=== PATIENT | female | born 1955 | race African-American/Black ===

== ENCOUNTER 2017-08-08 10:19 | Inpatient (IN) | payer OTHER ==
[2017-08-08 11:12] VITALS: BMI 35.5
--- NOTE | 2017-08-08 12:50 | HP ---
CIWA Score - CIWA Score Nausea/Vomitin-No Nausea/No Vomiting Muscle Tremors: 4-Moderate,w/Arms Extend Anxiety: 4-Mod. Anxious/Guarded Agitation: 4-Moderately Restless Paroxysmal Sweats: 1-Minimal Palms Moist Orientation: 0-Oriented Tacttile Disturbances: 2-Mild Itch/Numbness/Burn Auditory Disturbances: 0-None Visual Disturbances: 0-None Headache: 1-Very Mild CIWA-Ar Total Score: 16 Admission ROS S - HPI Chief Complaint: alcohol withdrawal sx Allergies/Adverse Reactions: Allergies Allergy/AdvReac Type Severity Reaction Status Date / Time No Known Allergies Allergy Verified 08/08/17 12:26 History of Present Illness: 62 years old female with long history of alcohol nicotine dependence has diabetes ii hypertension and depression is admitted to detox Exam Limitations: No Limitations - Ebola screening Have you traveled outside of the country in the last 21 days: No Have you had contact with anyone from an Ebola affected area: No Have you been sick,other than usual withdrawal symptoms: No Do you have a fever: No - Review of Systems Constitutional: Changes in sleep, Weight Stable EENT: reports: Blurred Vision (eye glassess at home) Respiratory: reports: SOB with Exertion Cardiac: reports: No Symptoms Reported GI: reports: Poor Fluid Intake, Abdominal cramping : reports: No Symptoms Reported Musculoskeletal: reports: Back Pain, Neck Pain Integumentary: reports: No Symptoms Reported Neuro: reports: Tremors Endocrine: reports: Increased Urine Hematology: reports: No Symptoms Reported Psychiatric: reports: Judgement Intact, Orientated x3, Depressed Other Systems: Reviewed and Negative Patient History - Patient Medical History Hx Anemia: No Hx Asthma: Yes Hx Chronic Obstructive Pulmonary Disease (COPD): No Hx Cancer: No Hx Cardiac Disorders: No Hx Congestive Heart Failure: No Hx Hypertension: Yes Hx Hypercholesterolemia: No Hx Pacemaker: No HX Cerebrovascular Accident: No Hx Seizures: No Hx Dementia: No Hx Diabetes: Yes Hx Gastrointestinal Disorders: No Hx Liver Disease: No Hx Genitourinary Disorders: No Hx Sexually Transmitted Disorders: No Hx Renal Disease (ESRD): No Hx Thyroid Disease: No Hx Human Immunodeficiency Virus (HIV): No Hx Hepatitis C: No Hx Depression: Yes Hx Suicide Attempt: No Hx Bipolar Disorder: No Hx Schizophrenia: No - Patient Surgical History Past Surgical History: No Hx Neurologic Surgery: No Hx Cataract Extraction: No Hx Cardiac Surgery: No Hx Lung Surgery: No Hx Breast Surgery: No Hx Breast Biopsy: No Hx Abdominal Surgery: No Hx Appendectomy: No Hx Cholecystectomy: No Hx Genitourinary Surgery: No Hx Orthopedic Surgery: No Other Surgical History: right and left shoulder blades serosanquino cyst biopse negative 01/2017 Anesthesia Reaction: No - PPD History Previous Implant?: Yes Documented Results: Negative w/o proof Implanted On Prior [facility] Admission?: No PPD to be Administered?: Yes - Reproductive History Patient is a Female of Child Bearing Age (11 -55 yrs old): No Last Menstrual Period: 08/08/10 Patient : No - Smoking Cessation Smoking history: Current every day smoker Have you smoked in the past 12 months: Yes Aproximately how many cigarettes per day: 10 Cigars Per Day: 0 Hx Chewing Tobacco Use: No Initiated information on smoking cessation: Yes 'Breaking Loose' booklet given: 08/08/17 - Substance & Tx. History Hx Alcohol Use: Yes Hx Substance Use: No Substance Use Type: Alcohol Hx Substance Use Treatment: No (first detox) - Substances Abused Alcohol-tequila Route: Oral Frequency: Daily Amount used: 1 pt. Age of first use: 59 Date of Last Use: 08/07/17 Family Disease History - Family Disease History Family Disease History: [place]: Daughter (surgical treatment 2016), Other: Father ( ), Daughter Admission Physical Exam S - Vital Signs Vital Signs: Vital Signs - 24 hr 08/08/17 11:10 Temperature 97.6 F Pulse Rate 66 Respiratory 20 Rate Blood Pressure 189/92 - Physical General Appearance: Yes: Appropriately Dressed, Mild Distress, Obese, Tremorous , Irritable, Sweating, Anxious HEENTM: Yes: Hearing grossly Normal, Normocephalic, Normal Voice Respiratory: Yes: Chest Non-Tender, Lungs Clear, No Respiratory Distress, No Accessory Muscle Use Neck: Yes: Supple, Trachea in good position Breast: Yes: Breasts Symetrical, No Discharge Cardiology: Yes: Regular Rhythm, Regular Rate, S1, S2 Abdominal: Yes: Normal Bowel Sounds, Non Tender, Flat Genitourinary: Yes: Within Normal Limits Back: Yes: Normal Inspection Musculoskeletal: Yes: full range of Motion, Gait Steady Extremities: Yes: Normal Inspection, Normal Range of Motion, Non-Tender, Tremors Neurological: Yes: Fully Oriented, Alert, Motor Strength 5/5, Normal Response, Depressed Affect Integumentary: Yes: Dry, Warm Lymphatic: Yes: Within Normal Limits - Diagnostic (1) Alcohol dependence with uncomplicated withdrawal Current Visit: Yes Status: Acute (2) Diabetes mellitus type II, controlled Current Visit: Yes Status: Chronic Qualifiers: Diabetes mellitus long term care administrator insulin use: without long term care administrator use Diabetes mellitus complication status: without complication Qualified Code(s): E11.9 - Type 2 diabetes mellitus without complications (3) Hypertension Current Visit: Yes Status: Chronic Qualifiers: Hypertension type: essential hypertension Qualified Code(s): I10 - Essential (primary) hypertension (4) Dry skin dermatitis Current Visit: Yes Status: Chronic (5) Substance induced mood disorder Current Visit: Yes Status: Suspected Cleared for Admission S - Detox or Rehab [facility] Level of Care: Medically Managed Detox Regimen/Protocol: Librium [facility] Breath Alcohol Content Breath Alcohol Content: 0 Urine Pregancy Test - Result Urine Test Results: Negative- NO Line Present Urine Drug Screen - Results Drug Screen Negative: Yes
[2017-08-08] MEDS ORDERED: ACETAMINOPHEN 325 MG TABLET (FP) PO PRN (12:59)
[2017-08-08] MEDS ORDERED: chlordiazePOXIDE HCL 25 MG CAPSULE PO PRN (12:59)
[2017-08-08] MEDS ORDERED: LOPERAMIDE HCL 2 MG CAPSULE PO PRN (12:59)
[2017-08-08] MEDS ORDERED: IBUPROFEN 400 MG TABLET (FP) PO PRN (12:59)
[2017-08-08] MEDS ORDERED: guaiFENesin/D-METHORPHAN HB 10 ML UNIT-DOSE CUPS PO PRN (12:59)
[2017-08-08] MEDS ORDERED: MAG HYDROX/AL HYDROX/SIMETH 30 ML UNIT-DOSE CUP PO PRN (12:59)
[2017-08-08] MEDS ORDERED: NICOTINE POLACRILEX 2 MG GUM BC PRN (12:59)
[2017-08-08] MEDS ORDERED: P-EPHED 60MG/TRIPROLIDI 2.5MG TABLET PO PRN (12:59)
[2017-08-08] MEDS ORDERED: MAGNESIUM HYDROX 2400MG/30ML ORAL SUSPENSION 30 ML CUP PO PRN (12:59)
[2017-08-08] MEDS ORDERED: MAGNESIUM CITRATE 300 ML BOTTLE PO PRN (12:59)
[2017-08-08] MEDS ORDERED: MENTHOL/PHENOL 1 EACH UD MM PRN (12:59)
[2017-08-08] MEDS ORDERED: METFORMIN HCL 750 MG PO SCH (13:15)
[2017-08-08] MEDS: amLODIPine BESYLATE 10 MG TABLET (FP) PO SCH (17:11)
[2017-08-08] MEDS: chlordiazePOXIDE HCL 25 MG CAPSULE PO SCH ×2 (17:11→22:26)
[2017-08-08] MEDS: NICOTINE 14 MG/24 HOURS TOPICAL PATCH TD SCH (17:15)
[2017-08-08] MEDS: METFORMIN HCL 750 MG PO SCH (17:37)
[2017-08-08] MEDS ORDERED: MELATONIN 5 MG TABLETS PO PRN (22:00)
[2017-08-08] MEDS: THIAMINE HCL 100 MG TABLET (FP) PO SCH (22:26)
[2017-08-08] MEDS ORDERED: cloNIDine HCL 0.1 MG TABLET PO ONE (23:02)
[2017-08-08] MEDS: MINERAL OIL/PETROLAT/WATER TOPICAL CREAM 113 GM JAR TP SCH (23:04)
--- NOTE | 2017-08-08 23:16 | PN ---
BHS Progress Note Note: Patient with asymptomatic elevated BP 156/108. withdrawal sx one time dose clonidine 0.1mg increase fluids continue to monitor
[2017-08-09 01:30] LABS: URINE APPEARANCE CLEAR; URINE BILIRUBIN NEGATIVE (<2.0 mg/dL); URINE COLOR LTYELLOW; URINE GLUCOSE (UA) NEGATIVE (NEGATIVE); URINE KETONE NEGATIVE (NEGATIVE); URINE LEUK ESTERASE NEGATIVE (NEGATIVE); URINE NITRITE NEGATIVE (NEGATIVE); URINE PROTEIN NEGATIVE (NEGATIVE); URINE UROBILINOGEN NEGATIVE mg/dL (0.2-1.0)
[2017-08-09] MEDS: chlordiazePOXIDE HCL 25 MG CAPSULE PO SCH ×4 (06:30→22:46)
[2017-08-09 10:04] LABS: HEMATOCRIT 42.1 % (32.4-45.2); HEMOGLOBIN 13.4 GM/dL (10.7-15.3); MCH 26.2 pg (25.7-33.7); MCHC 31.8 g/dl (32.0-36.0); MEAN CELL VOLUME 82.2 fl (80-96); MEAN PLT VOLUME 11.6 fl (7.5-11.1); PLATELET COUNT 120 K/MM3 (134-434); RBC 5.12 M/mm3 (3.60-5.2); RDW 16.3 % (11.6-15.6); WHITE BLOOD COUNT 3.5 K/mm3 (4.0-10.0)
[2017-08-09 10:24] LABS: CHLORIDE 109 mmol/L (98-107); POTASSIUM 4.1 mmol/L (3.5-5.1); SODIUM 142 mmol/L (136-145)
--- NOTE | 2017-08-09 10:45 | PN ---
S CIWA - CIWA Score Nausea/Vomitin-Mild Nausea/No Vomiting Muscle Tremors: 4-Moderate,w/Arms Extend Anxiety: 4-Mod. Anxious/Guarded Agitation: 4-Moderately Restless Paroxysmal Sweats: 1-Minimal Palms Moist Orientation: 0-Oriented Tacttile Disturbances: 1-Very Mild Itch/Numbness Auditory Disturbances: 0-None Visual Disturbances: 0-None Headache: 0-None Present CIWA-Ar Total Score: 15 BHS Progress Note (SOAP) Subjective: sweat tremor anxiety restlessness trouble sleep at night Objective: 08/09/17 10:44 Vital Signs Temperature 97.5 F L 08/09/17 09:53 Pulse Rate 71 08/09/17 09:53 Respiratory Rate 20 08/09/17 09:53 Blood Pressure 151/100 08/09/17 09:53 O2 Sat by Pulse Oximetry (%) Laboratory Last Values WBC 3.5 K/mm3 (4.0-10.0) L 08/09/17 05:50 RBC 5.12 M/mm3 (3.60-5.2) 08/09/17 05:50 Hgb 13.4 GM/dL (10.7-15.3) 08/09/17 05:50 Hct 42.1 % (32.4-45.2) 08/09/17 05:50 MCV 82.2 fl (80-96) 08/09/17 05:50 MCH 26.2 pg (25.7-33.7) 08/09/17 05:50 MCHC 31.8 g/dl (32.0-36.0) L 08/09/17 05:50 RDW 16.3 % (11.6-15.6) H 08/09/17 05:50 Plt Count 120 K/MM3 (134-434) L 08/09/17 05:50 MPV 11.6 fl (7.5-11.1) H 08/09/17 05:50 Sodium 142 mmol/L (136-145) 08/09/17 05:50 Potassium 4.1 mmol/L (3.5-5.1) 08/09/17 05:50 Chloride 109 mmol/L (98-107) H 08/09/17 05:50 POC Glucometer 119 UNITS (80-120) 08/09/17 06:40 Urine Color Ltyellow 08/08/17 23:30 Urine Appearance Clear 08/08/17 23:30 Urine pH 8.0 (5.0-8.0) 08/08/17 23:30 Ur Specific [place] 1.014 (1.001-1.035) 08/08/17 23:30 Urine Protein Negative (NEGATIVE) 08/08/17 23:30 Urine Glucose (UA) Negative (NEGATIVE) 08/08/17 23:30 Urine Ketones Negative (NEGATIVE) 08/08/17 23:30 Urine Blood Negative (NEGATIVE) 08/08/17 23:30 Urine Nitrite Negative (NEGATIVE) 08/08/17 23:30 Urine Bilirubin Negative (<2.0 mg/dL) 08/08/17 23:30 Urine Urobilinogen Negative mg/dL (0.2-1.0) 08/08/17 23:30 Ur Leukocyte Esterase Negative (NEGATIVE) 08/08/17 23:30 lab noted Assessment: 08/09/17 10:45 withdrawal sx hypertension diabetes Plan: continue detox amlodopine lisinopril
[2017-08-09 10:54] LABS: ALBUMIN 3.8 g/dl (3.4-5.0); ALK PHOS 112 U/L (45-117); ANION GAP 8 (8-16); BILIRUBIN,TOTAL 0.5 mg/dL (0.2-1.0); BLOOD UREA NITROGEN 10 mg/dL (7-18); CALCIUM 8.6 mg/dL (8.5-10.1); CO2 25 mmol/L (21-32); CREATININE 0.8 mg/dL (0.55-1.02); GLUCOSE,RANDOM 99 mg/dL (74-106); SGOT/AST 38 U/L (15-37); SGPT/ALT 53 U/L (12-78); TOT PROT 7.8 g/dl (6.4-8.2)
[2017-08-09] MEDS: PRENATAL VITAMINS W/ FOLIC ACID TABLET (FP) PO SCH (11:05)
[2017-08-09] MEDS: amLODIPine BESYLATE 10 MG TABLET (FP) PO SCH (11:05)
[2017-08-09] MEDS: NICOTINE 14 MG/24 HOURS TOPICAL PATCH TD SCH (11:06)
[2017-08-09] MEDS: LISINOPRIL 10 MG TABLET (FP) PO SCH (11:08)
--- NOTE | 2017-08-09 11:30 | EKG ---
Test Reason : Blood Pressure : / mmHG Vent. Rate : 069 BPM Atrial Rate : 069 BPM P-R Int : 126 ms QRS Dur : 136 ms QT Int : 472 ms P-R-T Axes : 064 -63 009 degrees QTc Int : 505 ms NORMAL SINUS RHYTHM RIGHT BUNDLE BRANCH BLOCK LEFT ANTERIOR FASCICULAR BLOCK BIFASCICULAR BLOCK MINIMAL VOLTAGE CRITERIA FOR LVH, MAY BE NORMAL VARIANT ABNORMAL ECG NO PREVIOUS ECGS AVAILABLE Confirmed by ALIYAH MANUEL MD ([id number]) on 08/09/2017 11:30:06 AM Referred By: Confirmed By:ALIYAH MANUEL MD
[2017-08-09] MEDS: METFORMIN HCL 750 MG PO SCH (17:23)
--- NOTE | 2017-08-09 18:44 | CONSULT ---
[facility] Psychiatric Consult - Data Date of interview: 08/09/17 Admission source: [facility] Identifying data: First admission to [facility] for this 62 y/o AA female seeking detox treatment on for alcohol dependence.Patient is single,a mother of four,domiciled and sporadically employed. Substance Abuse History: Confirmed by patient in this interview.Smoking history : Current every day smoker. Have you smoked in the past 12 months: Yes. Aproximately how many cigarettes per day: 10. Cigars Per Day: 0. Hx Chewing Tobacco Use: No. Initiated information on smoking cessation: Yes. 'Breaking Loose' booklet given: 08/08/17. - Substance & Tx. History. Hx Alcohol Use: Yes. Hx Substance Use: No. Substance Use Type: Alcohol. Hx Substance Use Treatment: No (first detox). - Substances Abused. Alcohol-tequila. Route: Oral. Frequency: Daily. Amount used: 1 pt. Age of first use: 59. Date of Last Use: 08/07/17 Medical History: Bronchial asthma,obesity,diabetes mellitus and hypertension. Psychiatric History: Patient denies. Physical/Sexual Abuse/Trauma History: Patient denies. Additional Comment: Drug Screen is negative. Mental Status Exam - Mental Status Exam Alert and Oriented to: Time, Place, Person Cognitive Function: Good Patient Appearance: Well Groomed Mood: Hopeful, Euthymic Affect: Appropriate, Normal Range Patient Behavior: Appropriate, Cooperative Speech Pattern: Clear, Appropriate Voice Loudness: Normal Thought Process: Intact Thought Disorder: Not Present Hallucinations: Denies Suicidal Ideation: Denies Homicidal Ideation: Denies Insight/Judgement: Fair Sleep: Well Appetite: Good Muscle strength/Tone: Normal Gait/Station: Normal Psychiatric Findings - Problem List ([place] 1, 2,3) (1) Alcohol dependence with uncomplicated withdrawal Current Visit: Yes Status: Acute (2) Nicotine dependence Current Visit: Yes Status: Acute - Initial Treatment Plan Initial Treatment Plan: Psychoeducation.Detoxification.Observation.
[2017-08-09] MEDS: MINERAL OIL/PETROLAT/WATER TOPICAL CREAM 113 GM JAR TP SCH (22:45)
[2017-08-09] MEDS: THIAMINE HCL 100 MG TABLET (FP) PO SCH (22:46)
[2017-08-10] MEDS: chlordiazePOXIDE HCL 25 MG CAPSULE PO SCH ×2 (06:16→10:55)
--- NOTE | 2017-08-10 08:49 | EKG ---
Test Reason : Blood Pressure : / mmHG Vent. Rate : 067 BPM Atrial Rate : 067 BPM P-R Int : 122 ms QRS Dur : 138 ms QT Int : 458 ms P-R-T Axes : 049 -59 009 degrees QTc Int : 483 ms NORMAL SINUS RHYTHM RIGHT BUNDLE BRANCH BLOCK LEFT ANTERIOR FASCICULAR BLOCK BIFASCICULAR BLOCK MODERATE VOLTAGE CRITERIA FOR LVH, MAY BE NORMAL VARIANT ABNORMAL ECG WHEN COMPARED WITH ECG OF 08-AUG-2017 17:17, NO SIGNIFICANT CHANGE WAS FOUND Confirmed by NICHOLAS PRESCOTT, VINH ([id number]) on 08/10/2017 8:49:01 AM Referred By: Confirmed By:VINH PETERSON MD
[2017-08-10] MEDS: LISINOPRIL 10 MG TABLET (FP) PO SCH (10:52)
[2017-08-10] MEDS: amLODIPine BESYLATE 10 MG TABLET (FP) PO SCH (10:52)
[2017-08-10] MEDS: NICOTINE 14 MG/24 HOURS TOPICAL PATCH TD SCH (10:53)
[2017-08-10] MEDS: PRENATAL VITAMINS W/ FOLIC ACID TABLET (FP) PO SCH (12:49)
--- NOTE | 2017-08-10 14:36 | PN ---
S CIWA - CIWA Score Nausea/Vomitin Muscle Tremors: 3 Anxiety: 3 Agitation: 2 Paroxysmal Sweats: 1-Minimal Palms Moist Orientation: 0-Oriented Tacttile Disturbances: 1-Very Mild Itch/Numbness Auditory Disturbances: 1-Very Mild Visual Disturbances: 0-None Headache: 2-Mild CIWA-Ar Total Score: 16 BHS Progress Note (SOAP) Subjective: ALERT,IRRITABLE,TREMOR,INTERRUPTED SLEEP Objective: 08/10/17 14:34 Vital Signs Temperature 97.7 F 08/10/17 09:45 Pulse Rate 72 08/10/17 09:45 Respiratory Rate 18 08/10/17 09:45 Blood Pressure 124/76 08/10/17 09:45 O2 Sat by Pulse Oximetry (%) Laboratory Last Values WBC 3.5 K/mm3 (4.0-10.0) L 08/09/17 05:50 RBC 5.12 M/mm3 (3.60-5.2) 08/09/17 05:50 Hgb 13.4 GM/dL (10.7-15.3) 08/09/17 05:50 Hct 42.1 % (32.4-45.2) 08/09/17 05:50 MCV 82.2 fl (80-96) 08/09/17 05:50 MCH 26.2 pg (25.7-33.7) 08/09/17 05:50 MCHC 31.8 g/dl (32.0-36.0) L 08/09/17 05:50 RDW 16.3 % (11.6-15.6) H 08/09/17 05:50 Plt Count 120 K/MM3 (134-434) L 08/09/17 05:50 MPV 11.6 fl (7.5-11.1) H 08/09/17 05:50 Sodium 142 mmol/L (136-145) 08/09/17 05:50 Potassium 4.1 mmol/L (3.5-5.1) 08/09/17 05:50 Chloride 109 mmol/L (98-107) H 08/09/17 05:50 Carbon Dioxide 25 mmol/L (21-32) 08/09/17 05:50 Anion Gap 8 (8-16) 08/09/17 05:50 BUN 10 mg/dL (7-18) 08/09/17 05:50 Creatinine 0.8 mg/dL (0.55-1.02) 08/09/17 05:50 Creat Clearance w eGFR > 60 (>60) 08/09/17 05:50 POC Glucometer 122 UNITS (80-120) 08/10/17 06:11 Random Glucose 99 mg/dL (74-106) 08/09/17 05:50 Calcium 8.6 mg/dL (8.5-10.1) 08/09/17 05:50 Total Bilirubin 0.5 mg/dL (0.2-1.0) 08/09/17 05:50 AST 38 U/L (15-37) H 08/09/17 05:50 ALT 53 U/L (12-78) 08/09/17 05:50 Alkaline Phosphatase 112 U/L (45-117) 08/09/17 05:50 Total Protein 7.8 g/dl (6.4-8.2) 08/09/17 05:50 Albumin 3.8 g/dl (3.4-5.0) 08/09/17 05:50 Urine Color Ltyellow 08/08/17 23:30 Urine Appearance Clear 08/08/17 23:30 Urine pH 8.0 (5.0-8.0) 08/08/17 23:30 Ur Specific [place] 1.014 (1.001-1.035) 08/08/17 23:30 Urine Protein Negative (NEGATIVE) 08/08/17 23:30 Urine Glucose (UA) Negative (NEGATIVE) 08/08/17 23:30 Urine Ketones Negative (NEGATIVE) 08/08/17 23:30 Urine Blood Negative (NEGATIVE) 08/08/17 23:30 Urine Nitrite Negative (NEGATIVE) 08/08/17 23:30 Urine Bilirubin Negative (<2.0 mg/dL) 08/08/17 23:30 Urine Urobilinogen Negative mg/dL (0.2-1.0) 08/08/17 23:30 Ur Leukocyte Esterase Negative (NEGATIVE) 08/08/17 23:30 RPR Titer Nonreactive (NONREACTIVE) 08/09/17 05:50 Assessment: 08/10/17 14:35 WITHDRAWAL SYMPTOM Plan: CONTINUE DETOX
[2017-08-10] MEDS: METFORMIN HCL 750 MG PO SCH (17:12)
[2017-08-10] MEDS: chlordiazePOXIDE 5 MG CAPSULE PO SCH ×2 (17:12→22:05)
[2017-08-10] MEDS: THIAMINE HCL 100 MG TABLET (FP) PO SCH (22:05)
[2017-08-10] MEDS: MINERAL OIL/PETROLAT/WATER TOPICAL CREAM 113 GM JAR TP SCH (22:05)
[2017-08-11] MEDS: chlordiazePOXIDE 5 MG CAPSULE PO SCH ×2 (05:33→10:05)
[2017-08-11] MEDS: PRENATAL VITAMINS W/ FOLIC ACID TABLET (FP) PO SCH (10:05)
[2017-08-11] MEDS: LISINOPRIL 10 MG TABLET (FP) PO SCH (10:05)
[2017-08-11] MEDS: amLODIPine BESYLATE 10 MG TABLET (FP) PO SCH (10:05)
[2017-08-11] MEDS: NICOTINE 14 MG/24 HOURS TOPICAL PATCH TD SCH (10:05)
--- NOTE | 2017-08-11 12:14 | PN ---
S Progress Note (SOAP) Subjective: alert,irritable,anxious,interrupted sleep, Objective: 08/11/17 12:13 Vital Signs Temperature 98.1 F 08/11/17 09:06 Pulse Rate 79 08/11/17 09:06 Respiratory Rate 16 08/11/17 09:06 Blood Pressure 147/96 08/11/17 09:06 O2 Sat by Pulse Oximetry (%) Assessment: 08/11/17 12:14 withdrawal symptom Plan: continue detox
[2017-08-11] MEDS: MINERAL OIL/PETROLAT/WATER TOPICAL CREAM 454 GM JAR TP SCH ×2 (14:39→22:04)
[2017-08-11] MEDS: METFORMIN HCL 750 MG PO SCH (17:26)
[2017-08-11] MEDS: chlordiazePOXIDE HCL 10 MG CAPSULE PO SCH ×2 (17:26→22:04)
[2017-08-11] MEDS: THIAMINE HCL 100 MG TABLET (FP) PO SCH (22:04)
[2017-08-12] MEDS: chlordiazePOXIDE HCL 10 MG CAPSULE PO SCH ×2 (05:09→11:04)
[2017-08-12 09:15] VITALS: BP 139/86; PULSE 90; TEMP 97.1
--- NOTE | 2017-08-12 09:51 | PN ---
BHS Progress Note (SOAP) Subjective: ALERT,NO COMPLAINING Objective: 08/12/17 09:49 Vital Signs Temperature 97.1 F L 08/12/17 09:14 Pulse Rate 90 08/12/17 09:14 Respiratory Rate 16 08/12/17 09:14 Blood Pressure 139/86 08/12/17 09:14 O2 Sat by Pulse Oximetry (%) 08/12/17 09:49 BGM 114 Assessment: 08/12/17 09:49 DETOX COMPLETED,NO WITHDRAWAL SYMPTOM Plan: DISCHARGE TODAY,FOLLOW UP WITH AFTER CARE PROGRAM ARRANGEMENT
--- NOTE | 2017-08-12 09:55 | DS ---
[facility] Detox Discharge Summary Admission Date: 08/08/17 Discharge Date: 08/12/17 - History Present History: Alcohol Dependence Pertinent Past History: TYPE 2 DM HYPERTENSION INSOMNIA - Physical Exam Results Vital Signs: Vital Signs Temperature 97.1 F L 08/12/17 09:14 Pulse Rate 90 08/12/17 09:14 Respiratory Rate 16 08/12/17 09:14 Blood Pressure 139/86 08/12/17 09:14 O2 Sat by Pulse Oximetry (%) Pertinent Admission Physical Exam Findings: WITHDRAWAL SIGNS AND SYMPTOM Vital Signs Temperature 97.1 F L 08/12/17 09:14 Pulse Rate 90 08/12/17 09:14 Respiratory Rate 16 08/12/17 09:14 Blood Pressure 139/86 08/12/17 09:14 O2 Sat by Pulse Oximetry (%) Laboratory Last Values WBC 3.5 K/mm3 (4.0-10.0) L 08/09/17 05:50 RBC 5.12 M/mm3 (3.60-5.2) 08/09/17 05:50 Hgb 13.4 GM/dL (10.7-15.3) 08/09/17 05:50 Hct 42.1 % (32.4-45.2) 08/09/17 05:50 MCV 82.2 fl (80-96) 08/09/17 05:50 MCH 26.2 pg (25.7-33.7) 08/09/17 05:50 MCHC 31.8 g/dl (32.0-36.0) L 08/09/17 05:50 RDW 16.3 % (11.6-15.6) H 08/09/17 05:50 Plt Count 120 K/MM3 (134-434) L 08/09/17 05:50 MPV 11.6 fl (7.5-11.1) H 08/09/17 05:50 Sodium 142 mmol/L (136-145) 08/09/17 05:50 Potassium 4.1 mmol/L (3.5-5.1) 08/09/17 05:50 Chloride 109 mmol/L (98-107) H 08/09/17 05:50 Carbon Dioxide 25 mmol/L (21-32) 08/09/17 05:50 Anion Gap 8 (8-16) 08/09/17 05:50 BUN 10 mg/dL (7-18) 08/09/17 05:50 Creatinine 0.8 mg/dL (0.55-1.02) 08/09/17 05:50 Creat Clearance w eGFR > 60 (>60) 08/09/17 05:50 POC Glucometer 114 UNITS (80-120) 08/12/17 05:10 Random Glucose 99 mg/dL (74-106) 08/09/17 05:50 Calcium 8.6 mg/dL (8.5-10.1) 08/09/17 05:50 Total Bilirubin 0.5 mg/dL (0.2-1.0) 08/09/17 05:50 AST 38 U/L (15-37) H 08/09/17 05:50 ALT 53 U/L (12-78) 08/09/17 05:50 Alkaline Phosphatase 112 U/L (45-117) 08/09/17 05:50 Total Protein 7.8 g/dl (6.4-8.2) 08/09/17 05:50 Albumin 3.8 g/dl (3.4-5.0) 08/09/17 05:50 Urine Color Ltyellow 08/08/17 23:30 Urine Appearance Clear 08/08/17 23:30 Urine pH 8.0 (5.0-8.0) 08/08/17 23:30 Ur Specific [place] 1.014 (1.001-1.035) 08/08/17 23:30 Urine Protein Negative (NEGATIVE) 08/08/17 23:30 Urine Glucose (UA) Negative (NEGATIVE) 08/08/17 23:30 Urine Ketones Negative (NEGATIVE) 08/08/17 23:30 Urine Blood Negative (NEGATIVE) 08/08/17 23:30 Urine Nitrite Negative (NEGATIVE) 08/08/17 23:30 Urine Bilirubin Negative (<2.0 mg/dL) 08/08/17 23:30 Urine Urobilinogen Negative mg/dL (0.2-1.0) 08/08/17 23:30 Ur Leukocyte Esterase Negative (NEGATIVE) 08/08/17 23:30 RPR Titer Nonreactive (NONREACTIVE) 08/09/17 05:50 - Treatment Hospital Course: Detox Protocol Followed, Detoxed Safely, Responded well, Discharged Condition Good, Rehab Referral Accepted Patient has Accepted a Rehab Referral to: [facility] - Medication Discharge Medications: Ambulatory Orders Metformin HCl [Metformin HCl ER] 750 mg PO ASDIR 08/08/17 Amlodipine Besylate [Norvasc -] 10 mg PO DAILY 08/09/17 Lisinopril [Prinivil] 10 mg PO DAILY 08/09/17 - Diagnosis (1) Alcohol dependence with uncomplicated withdrawal Current Visit: Yes Status: Acute (2) Nicotine dependence Current Visit: Yes Status: Acute (3) Diabetes mellitus type II, controlled Current Visit: Yes Status: Chronic Qualifiers: Diabetes mellitus fdc insulin use: without fdc use Diabetes mellitus complication status: without complication Qualified Code(s): E11.9 - Type 2 diabetes mellitus without complications (4) Hypertension Current Visit: Yes Status: Chronic Qualifiers: Hypertension type: essential hypertension Qualified Code(s): I10 - Essential (primary) hypertension - AMA Did Patient Leave Against Medical Advice: No
[2017-08-12] MEDS: LISINOPRIL 10 MG TABLET (FP) PO SCH (11:03)
[2017-08-12] MEDS: PRENATAL VITAMINS W/ FOLIC ACID TABLET (FP) PO SCH (11:03)
[2017-08-12] MEDS: amLODIPine BESYLATE 10 MG TABLET (FP) PO SCH (11:04)
[2017-08-12] MEDS: MINERAL OIL/PETROLAT/WATER TOPICAL CREAM 454 GM JAR TP SCH (11:04)
[2017-08-12] MEDS: NICOTINE 14 MG/24 HOURS TOPICAL PATCH TD SCH (11:37)
== END 2017-08-12 13:14 | disposition other institution (70) | DRG 775 ==
LOC: YASAS 10:19 → Y6N 13:40
PROVIDERS: ADMIT Surgery; ATTEND Surgery
PROC: HZ2ZZZZ Detoxification Services for Substance Abuse Treatment (ICD-10-PCS; principal; 2017-08-08)
DX: F10.230 Alcohol dependence with withdrawal, uncomplicated (principal); F17.210 Nicotine dependence, cigarettes, uncomplicated; F19.24 Other psychoactive substance dependence with psychoactive substance-induced mood disorder; I10 Essential (primary) hypertension; L85.3 Xerosis cutis; E11.9 Type 2 diabetes mellitus without complications; Z79.84 Long term (current) use of oral hypoglycemic drugs
CPT/HCPCS: 36415; 80053; 81003; 82962; 85027; 86593; 93005; 93010; J0735

== ENCOUNTER 2017-08-12 13:43 | Inpatient (IN) | payer OTHER ==
[2017-08-12] MEDS ORDERED: P-EPHED 60MG/TRIPROLIDI 2.5MG TABLET PO PRN (14:09)
[2017-08-12] MEDS ORDERED: MAGNESIUM HYDROX 2400MG/30ML ORAL SUSPENSION 30 ML CUP PO PRN (14:09)
[2017-08-12] MEDS ORDERED: IBUPROFEN 400 MG TABLET (FP) PO PRN (14:09)
[2017-08-12] MEDS ORDERED: ACETAMINOPHEN 325 MG TABLET (FP) PO PRN (14:09)
[2017-08-12] MEDS ORDERED: MAG HYDROX/AL HYDROX/SIMETH 30 ML UNIT-DOSE CUP PO PRN (14:09)
[2017-08-12] MEDS ORDERED: hydrOXYzine PAMOATE 50 MG CAPSULE (FP) PO PRN (14:09)
[2017-08-12] MEDS ORDERED: LOPERAMIDE HCL 2 MG CAPSULE PO PRN (14:09)
[2017-08-12] MEDS ORDERED: MAGNESIUM CITRATE 300 ML BOTTLE PO PRN (14:09)
--- NOTE | 2017-08-12 14:09 | HP ---
[facility] Rehab Assess/Revision - Admission History Admitted to Rehab from: [facility] Date of Admission to Rehab: 08/12/17 - Findings Detox History & Physical reviewed: Yes Concur with findings: Yes Comments/Additional Findings: FOR REHAB PROTOCOL Inpatient Rehab Admission - Initial Determination Are CD services needed?: Yes Free of communicable disease: Yes Not in need of hospitalization: Yes - Rehab Admission Criteria Previous failed treatment: Yes Poor recovery environment: Yes Comorbidities: Yes Lacks judgement: No Patient is meeting Inpatient Rehab admission criteria:: Yes
[2017-08-12] MEDS ORDERED: METFORMIN HCL 750 MG PO SCH (14:15)
[2017-08-12] MEDS: METFORMIN HCL 750 MG PO SCH (17:02)
[2017-08-12] MEDS: MINERAL OIL/PETROLAT/WATER TOPICAL CREAM 454 GM JAR TP SCH (21:25)
[2017-08-12] MEDS: THIAMINE HCL 100 MG TABLET (FP) PO SCH (21:25)
[2017-08-12] MEDS ORDERED: MELATONIN 5 MG TABLETS PO PRN (22:00)
[2017-08-13] MEDS ORDERED: PT OWN MED DRAWER 7, Y5N ONE ×3 (08:58→19:38)
[2017-08-13] MEDS: LISINOPRIL 10 MG TABLET (FP) PO SCH (09:51)
[2017-08-13] MEDS: amLODIPine BESYLATE 10 MG TABLET (FP) PO SCH (09:51)
[2017-08-13] MEDS: PRENATAL VITAMINS W/ FOLIC ACID TABLET (FP) PO SCH (09:51)
[2017-08-13] MEDS: MINERAL OIL/PETROLAT/WATER TOPICAL CREAM 454 GM JAR TP SCH ×2 (09:52→21:26)
[2017-08-13] MEDS: NICOTINE 14 MG/24 HOURS TOPICAL PATCH TD SCH (14:28)
[2017-08-13] MEDS: NICOTINE POLACRILEX 2 MG GUM BUC PRN ×3 (14:29→21:47)
[2017-08-13] MEDS: METFORMIN HCL 750 MG PO SCH (16:52)
[2017-08-13] MEDS: THIAMINE HCL 100 MG TABLET (FP) PO SCH (21:26)
[2017-08-14] MEDS: amLODIPine BESYLATE 10 MG TABLET (FP) PO SCH (10:39)
[2017-08-14] MEDS: PRENATAL VITAMINS W/ FOLIC ACID TABLET (FP) PO SCH (10:39)
[2017-08-14] MEDS: NICOTINE 14 MG/24 HOURS TOPICAL PATCH TD SCH (10:39)
[2017-08-14] MEDS: LISINOPRIL 10 MG TABLET (FP) PO SCH (10:39)
[2017-08-14] MEDS: MINERAL OIL/PETROLAT/WATER TOPICAL CREAM 454 GM JAR TP SCH ×2 (10:40→21:17)
--- NOTE | 2017-08-14 10:40 | HP ---
Psychiatrist Admission - Data Date of interview: 08/14/17 Admission source: [address] [place] [address] Identifying data: This is the first admission to [address] [place] [address] rehabilitation for this 62 years old AA single mother of 8 grown children, resides alone,supported by odd jobs,applied for PA.. Medical History: DM,HTN,BA,Obesity. Psychiatric History: denies Physical/Sexual Abuse/Trauma History: denies Vital Signs: Vital Signs - 24 hr 08/14/17 08/14/17 08/14/17 00:30 03:30 07:07 Temperature 98.3 F Pulse Rate 61 Respiratory 18 18 18 Rate Blood Pressure 145/89 Allergies/Adverse Reactions: Allergies Allergy/AdvReac Type Severity Reaction Status Date / Time No Known Allergies Allergy Verified 08/08/17 12:26 Date of last physical exam: 08/08/17 Concur with the findings of this exam: Yes - Substance Abuse/Tx History Hx Alcohol Use: Yes (reports drinking heavily since 59 yo,1 pint of Teguilla dsaily) Hx Substance Use: No (18 yo comleted alf,longest abstinence 18 years) Substance Use Type: Alcohol Hx Substance Use Treatment: Yes (reports longest time of sobriety about 18 years ) Mental Status Exam - Mental Status Exam Alert and Oriented to: Time, Place, Person Cognitive Function: Grossly Intact Patient Appearance: Well Groomed Mood: Euthymic Affect: Appropriate, Normal Range Patient Behavior: Cooperative Speech Pattern: Clear Voice Loudness: Normal Thought Process: Goal Oriented Thought Disorder: Not Present Hallucinations: Denies Suicidal Ideation: Denies Homicidal Ideation: Denies Insight/Judgement: Fair Sleep: Fair Appetite: Good Muscle strength/Tone: Normal Gait/Station: Normal Psychiatric Findings - Problem List ([place] 1, 2,3) (1) Nicotine dependence Current Visit: Yes Status: Chronic (2) Diabetes mellitus type II, controlled Current Visit: Yes Status: Chronic Qualifiers: (3) Dry skin dermatitis Current Visit: Yes Status: Chronic (4) Hypertension Current Visit: Yes Status: Chronic Qualifiers: (5) Substance induced mood disorder Current Visit: Yes Status: Chronic (6) Alcohol dependence Current Visit: Yes Status: Chronic - Initial Treatment Plan Initial Treatment Plan: Will monitor progress.
[2017-08-14] MEDS ORDERED: PT OWN MED DRAWER 7, Y5N ONE ×2 (16:58→20:25)
[2017-08-14] MEDS: METFORMIN HCL 750 MG PO SCH (17:15)
[2017-08-14] MEDS: NICOTINE POLACRILEX 2 MG GUM BUC PRN (17:16)
[2017-08-14] MEDS: THIAMINE HCL 100 MG TABLET (FP) PO SCH (21:18)
[2017-08-15] MEDS: NICOTINE 14 MG/24 HOURS TOPICAL PATCH TD SCH (10:11)
[2017-08-15] MEDS: MINERAL OIL/PETROLAT/WATER TOPICAL CREAM 454 GM JAR TP SCH ×2 (10:11→21:29)
[2017-08-15] MEDS: LISINOPRIL 10 MG TABLET (FP) PO SCH (10:12)
[2017-08-15] MEDS: amLODIPine BESYLATE 10 MG TABLET (FP) PO SCH (10:12)
[2017-08-15] MEDS: PRENATAL VITAMINS W/ FOLIC ACID TABLET (FP) PO SCH (10:12)
[2017-08-15] MEDS: MENTHOL/PHENOL 1 EACH UD MM PRN (10:13)
[2017-08-15] MEDS ORDERED: PT OWN MED DRAWER 7, Y5N ONE ×2 (15:37→17:13)
[2017-08-15] MEDS: guaiFENesin/D-METHORPHAN HB 10 ML UNIT-DOSE CUPS PO PRN ×2 (15:38→21:29)
[2017-08-15] MEDS: METFORMIN HCL 750 MG PO SCH (17:13)
[2017-08-15] MEDS: THIAMINE HCL 100 MG TABLET (FP) PO SCH (21:29)
[2017-08-16] MEDS: MENTHOL/PHENOL 1 EACH UD MM PRN ×2 (06:47→11:41)
[2017-08-16 07:24] VITALS: TEMP 98.1
[2017-08-16 09:29] VITALS: BP 144/84; PULSE 81
[2017-08-16] MEDS: amLODIPine BESYLATE 10 MG TABLET (FP) PO SCH (10:31)
[2017-08-16] MEDS: LISINOPRIL 10 MG TABLET (FP) PO SCH (10:31)
[2017-08-16] MEDS: PRENATAL VITAMINS W/ FOLIC ACID TABLET (FP) PO SCH (10:31)
[2017-08-16] MEDS: NICOTINE 14 MG/24 HOURS TOPICAL PATCH TD SCH (10:31)
[2017-08-16] MEDS: MINERAL OIL/PETROLAT/WATER TOPICAL CREAM 454 GM JAR TP SCH (10:32)
[2017-08-16] MEDS ORDERED: PT OWN MED DRAWER 7, Y5N ONE (16:32)
[2017-08-16] MEDS: METFORMIN HCL 750 MG PO SCH (17:08)
== END 2017-08-16 18:30 | disposition left against medical advice (07) | DRG 770 ==
LOC: YASAS 13:43 → Y3E 13:45
PROVIDERS: ADMIT Psychiatry & Neurology Psychiatry; ATTEND Psychiatry & Neurology Psychiatry
PROC: HZ42ZZZ Group Counseling for Substance Abuse Treatment, Cognitive-Behavioral (ICD-10-PCS; principal; 2017-08-12)
DX: F10.20 Alcohol dependence, uncomplicated (principal); F17.210 Nicotine dependence, cigarettes, uncomplicated; F19.24 Other psychoactive substance dependence with psychoactive substance-induced mood disorder; I10 Essential (primary) hypertension; E11.9 Type 2 diabetes mellitus without complications; L85.3 Xerosis cutis; Z79.84 Long term (current) use of oral hypoglycemic drugs
CPT/HCPCS: 82962